=== PATIENT | female | born 1950 | race Hispanic/Latino ===

== ENCOUNTER 2017-03-06 07:05 | Day surgery (SDC) | payer MEDICARE ==
[2017-03-04 13:28] VITALS: BMI 29.9
[2017-03-06] MEDS ORDERED: Lidocaine Hydrochloride 10 ML INJ ONE (07:29)
[2017-03-06] MEDS ORDERED: Iohexol 240 (50 ml) ONE (07:29)
[2017-03-06] MEDS ORDERED: Bupivacaine HCl 0.25% PF (10 ml) Inj ONE (07:29)
[2017-03-06] MEDS ORDERED: MethylPREDNISolone Depo 40 mg/ml Inj ONE ×2 (07:46→08:21)
[2017-03-06 07:54] VITALS: RESP 20; TEMP 98.1; O2SAT 99
[2017-03-06] MEDS ORDERED: Propofol 10 mg/ml Inj (20 ML) ONE ×2 (08:30→08:56)
[2017-03-06] MEDS ORDERED: Lactated Ringer's 500 ML IV ONE (08:40)
[2017-03-06 10:01] VITALS: BP 128/76; PULSE 72
--- NOTE | 2017-03-06 12:51 | RAD ---
PROCEDURE: Intraoperative Fluoroscopy. HISTORY: FAILED BACK SYNDROME FINDINGS: Fluoroscopic assistance was provided. 58.3 seconds fluoroscopy time utilized during this procedure. Radiation dose = 0.09608 mGy-cm
--- NOTE | 2017-03-06 18:10 | OP ---
PROCEDURE DATE: 03/06/2017 PREOPERATIVE DIAGNOSES: Lumbar radiculopathy, lumbar herniated disc, failed back syndrome. POSTOPERATIVE DIAGNOSES: Lumbar radiculopathy, lumbar herniated disc, failed back syndrome. PROCEDURES: 1. Caudal epidural steroid injection and intraepidural Racz cath placement. 2. X-ray is fluoroscopy of the spine, [address]. ANESTHESIA: MAC with local sedation. SURGEON: Danica Bull MD COMPLICATIONS: None. ESTIMATED BLOOD LOSS: 2 mL. BRIEF HISTORY AND INDICATIONS: The patient with lumbar radiculopathy with failed back syndrome. The patient has radicular pain bilaterally to feet. The patient is here for Racz cath, caudal epidural steroid injection under fluoroscopic guidance. PROCEDURE IN DETAIL: The patient's chart was reviewed and informed consent was obtained. The patient was brought back to the procedure room, placed in the prone position, routine monitors were applied. The patient was prepped and draped in sterile fashion. Under fluoroscopic views lateral views, a 27-gauge needle was used to inject lidocaine 1% 2 mL subcutaneously in the skin at the insertion site. Subsequently, an 18-gauge epidural Tuohy needle was used to advance into the caudal epidural space. Needle position was confirmed in AP and lateral views. Racz catheter was placed and moved to desired position at L5-S1 location. Omnipaque dye was injected showing good epidurogram. Subsequently, high volume mixture of Depo-Medrol 80 mg mixed with 6 mL of 0.5% Marcaine preservative free and 10 mL of normal saline was injected with intermittent negative aspiration, no heme or CSF aspiration throughout, no paresthesias throughout. Needle and catheter were removed. The patient tolerated the procedure well. Vital signs remained stable. The patient reported reduction in pain postprocedure. No sensory or motor deficits were noted. DISPOSITION: The patient was taken to the recovery room in stable condition. The patient was given instructions to follow up in 2 weeks and was discharged in stable condition complications. Danica Bull MD
== END 2017-03-06 09:55 | disposition home or self-care (01) ==
LOC: C.SDS 07:05
PROVIDERS: ATTEND Anesthesiology Pain Medicine
DX: M47.817 Spondylosis without myelopathy or radiculopathy, lumbosacral region (principal); M54.16 Radiculopathy, lumbar region; M51.26 Other intervertebral disc displacement, lumbar region
CPT/HCPCS: 62323; J1030; J2704; J7120; Q9966

== ENCOUNTER 2017-08-21 10:07 | Day surgery (SDC) | payer MEDICARE ==
[2017-03-04 13:28] VITALS: BMI 29.9
[~2017-08-21 10:07] MED LIST: Bupivacaine HCl 0.25% PF (30 ml) Inj ONE; Iohexol 240 (50 ml) ONE; Lidocaine Hydrochloride 5 ML INJ ONE; MethylPREDNISolone Depo 40 mg/ml Inj ONE
[2017-08-21] MEDS ORDERED: Propofol 10 mg/ml Inj (20 ML) ONE ×2 (10:56→11:21)
[2017-08-21 12:03] VITALS: RESP 19; TEMP 97.5
[2017-08-21 12:29] VITALS: BP 120/56; PULSE 61; O2SAT 97
--- NOTE | 2017-08-21 13:42 | RAD ---
PROCEDURE: Intraoperative Fluoroscopy. HISTORY: LUMBAR RADICULOPATHY FINDINGS: Fluoroscopic assistance was provided for epidural steroid injection. Please refer to the operative report from [facility].
--- NOTE | 2017-08-22 07:43 | OP ---
PROCEDURE DATE: 08/21/2017 PREOPERATIVE DIAGNOSES: Lumbar radiculopathy, lumbar herniated disc, myalgia, failed back syndrome lumbar spine. POSTOPERATIVE DIAGNOSES: Lumbar radiculopathy, lumbar herniated disc, myalgia, failed back syndrome lumbar spine. PROCEDURE: Caudal epidural steroid injection, intraepidural catheter placement Racz catheter and lysis of adhesions as well as trigger point injections. SURGEON: Danica Bull MD. BRIEF HISTORY AND INDICATIONS: The patient has lumbar radiculopathy with failed back syndrome from post lumbar surgery, pain is radicular in nature and bilateral to the feet with scar and nerve entrapment. The patient is here for caudal epidural steroid injection with Racz catheter under fluoroscopic guidance and lysis of adhesions as well as trigger point injections. PROCEDURE IN DETAIL: The patient chart was reviewed. Informed consent was obtained. The patient was brought back to the procedure room, placed in prone position. Routine monitors were applied. The patient was prepped and draped in sterile fashion. Under fluoroscopic view the sacral hiatus was taken in lateral view. A 27-gauge needle was used to infiltrate the skin subcutaneously with lidocaine 1% 2 mL. Subsequently, an 18-gauge epidural Tuohy needle was used to advanced into the caudal epidural space. Needle position was confirmed AP and lateral views. The Racz epidural catheter was placed through the Tuohy needle and moved into the desired position between L4-L5 and L5-S1 positions. Dye was injected showing good epidurogram. Subsequently, Depo-Medrol 80 mg with 5 mL of 0.5% Marcaine and 10 mL of normal saline high volume was injected with intermittent negative aspiration. No heme or CSF aspirated throughout. No paresthesias were elicited throughout. Needle and catheter was removed. The patient tolerated the procedure well. Vital signs remained stable. The patient reported reduction in pain postprocedure. No sensory or motor deficits were noted. Trigger point injections: The lumbar area was prepped and draped in sterile fashion. A 25-gauge needle was used to inject trigger points areas into the paralumbar spine muscles, parathoracic muscles and upper gluteal muscles. Needle was redirected to branch of the sciatic nerve branches peripherally. Total volume was 10 mL of 0.25% Marcaine. Intermittent aspiration was done throughout with no heme or CSF aspirated throughout. Patient tolerated procedure well. DISPOSITION: The patient was taken to the recovery room in stable condition. Patient was given instructions to follow up in two weeks and was discharged in stable condition. No events or complications. Danica Bull MD
== END 2017-08-21 12:40 | disposition home or self-care (01) ==
LOC: C.SDS 10:07
PROVIDERS: ATTEND Anesthesiology Pain Medicine
DX: M51.16 Intervertebral disc disorders with radiculopathy, lumbar region (principal); M51.36 Other intervertebral disc degeneration, lumbar region; M43.27 Fusion of spine, lumbosacral region; M96.1 Postlaminectomy syndrome, not elsewhere classified
CPT/HCPCS: 20553; 62323; 72275; J1030; J2001; J2704; Q9966